=== PATIENT | male | born 1945 | race Caucasian/White ===

== ENCOUNTER 2019-10-06 16:20 | Inpatient (IN) | payer MEDICARE, OTHER ==
[2019-10-06] MEDS ORDERED: Sodium Chloride 0.9% 10 ML Syringe FLUSH PRN (16:35)
[2019-10-06] MEDS: Pantoprazole 40 MG Vial IVPUSH SCH (18:18)
[2019-10-06] MEDS: Sodium Chloride 0.9% 250 ML IV SCH ×2 (18:27→20:29)
--- NOTE | 2019-10-06 18:50 | PCM.HP.2 ---
H&P History of Present Illness - General Date of Service: 10/06/19 Admit Problem/Dx: Admission Diagnosis/Problem Admission Diagnosis/Problem Anemia Source of Information: Patient History Limitations: Reports: No Limitations - History of Present Illness Initial Comments - Free Text/Narative: Daniela came in because of right lower quadrant pain that is mild to moderate over several days. With no radiation. At the clinic he was found, hemoglobin 4.4 g/ dl. He denies any bleeding areas any nausea vomiting, any chronic alcohol use, or NSAID use. No melena stools. He has never seen a doctor and has never had any surgeries. No history of colonoscopy. - Related Data Allergies/Adverse Reactions: Allergies Allergy/AdvReac Type Severity Reaction Status Date / Time No Known Allergies Allergy Verified 10/06/19 18:14 Social & Family History - Tobacco Use Smoking Status *Q: Former Smoker Years of Tobacco use: 40 Packs/Tins Daily: 3 Used Tobacco, but Quit: Yes Month/Year Tobacco Last Used: 09/2019 - Caffeine Use Caffeine Use: Reports: Coffee Other Caffeine Use: 2 CUPS PER DAY BUT STOPPED A WEEK AGO - Alcohol Use Days Per Week of Alcohol Use: 2 Number of Drinks Per Day: 2 Total Drinks Per Week: 4 Date of Last Drink: 10/05/19 - Recreational Drug Use Recreational Drug Use: No H&P Review of Systems - Review of Systems: Review Of Systems: Comprehensive ROS is negative, except as noted in HPI. Exam - Exam Exam: See Below - Vital Signs Vital Signs: Last Vital Signs Temp 97.2 F 10/06/19 18:39 Pulse 56 L 10/06/19 18:39 Resp 18 10/06/19 18:39 BP 115/62 10/06/19 18:39 Pulse Ox 98 10/06/19 16:31 Weight: 92.17 kg - Exam General: Alert, Oriented, 4 HEENT: PERRLA, Hearing Intact, Mucosa Moist & [place], Nares Patent, Normal Nasal Septum, Posterior Pharynx Clear, Conjunctiva Clear, EOMI, EACs Clear, TMs Clear Neck: Supple, Trachea Midline, 2 Lungs: Clear to Auscultation, Normal Respiratory Effort Cardiovascular: Regular Rate, Regular Rhythm GI/Abdominal Exam: Normal Bowel Sounds, Soft, Non-Tender, No Organomegaly, No Distention, No Abnormal Bruit, No Mass, Pelvis Stable (Male) Exam: Deferred Rectal (Males) Exam: Deferred Back Exam: Normal Inspection, Full Range of Motion, NT Extremities: Normal Inspection, Normal Range of Motion, Non-Tender, No Pedal Edema, Normal Capillary Refill Skin: Warm, Dry, Intact Neurological: Cranial Nerves Intact, Reflexes Equal Bilateral Neuro Extensive - Mental Status: Alert, Oriented x3, Normal Mood/Affect, Normal Cognition Neuro Extensive - Motor, Sensory, Reflexes: CN II-XII Intact, Normal Gait, Normal Reflexes Psychiatric: Alert, Normal Affect, Normal Mood - Patient Data Lab Results Last 24 hrs: Laboratory Results - last 24 hr 10/06/19 10/06/19 Range/Units 16:55 16:55 Sodium 142 (135-145) mmol/L Potassium 4.1 (3.5-5.3) mmol/L Chloride 108 (100-110) mmol/L Carbon Dioxide 27 (21-32) mmol/L BUN 8 (7-18) mg/dL Creatinine 0.7 (0.70-1.30) mg/dL Est Cr Clr Drug Dosing 98.49 mL/min Estimated GFR (MDRD) > 60 (>60) BUN/Creatinine Ratio 11.4 (9-20) Glucose 110 (80-116) mg/dL Calcium 9.1 (8.6-10.2) mg/dL Total Bilirubin 0.4 (0.1-1.3) mg/dL AST 13 (5-25) IU/L ALT 11 L (12-36) U/L Alkaline Phosphatase 114 H (56-112) IU/L Total Protein 6.6 (6.0-8.0) g/dL Albumin 2.6 L (3.2-4.6) g/dL Globulin 4.0 g/dL Albumin/Globulin Ratio 0.7 Blood Type O POSITIVE Gel Antibody Screen Negative Crossmatch See Detail Result Diagrams: 10/06/19 16:55 Sepsis Event Note - Evaluation Sepsis Screening Result: No Definite Risk - Focused Exam Vital Signs: Vital Signs Temp Temp Pulse Resp BP Pulse Ox 10/06/19 18:39 97.2 F 56 L 18 115/62 10/06/19 16:31 97.2 F 18 115/62 98 Date Exam was Performed: 10/06/19 Time Exam was Performed: 18:47 - Problem List (1) Anemia SNOMED Code(s): 274355986 ICD Code: D64.9 - ANEMIA, UNSPECIFIED Status: Acute Current Visit: Yes Qualifiers: Anemia type: unspecified type Qualified Code(s): D64.9 - Anemia, unspecified (2) RLQ abdominal tenderness SNOMED Code(s): 734975359 ICD Code: R10.813 - RIGHT LOWER QUADRANT ABDOMINAL TENDERNESS Status: Acute Current Visit: Yes Qualifiers: Presence of rebound: present Qualified Code(s): R10.823 - Right lower quadrant rebound abdominal tenderness Problem List Initiated/Reviewed/Updated: Yes Orders Last 24hrs: Active Orders 24 hr Category Date Time Status Admission Status [Patient Status] [ADT] Routine ADT 10/06/19 16:26 Active EKG Documentation Completion [RC] ASDIRECTED Care 10/06/19 18:47 Ordered Nothing Per Oral Diet [DIET] Diet 10/07/19 Breakfast Active Abdomen Pelvis w Cont [CT] Routine Exams 10/06/19 18:46 Ordered CBC WITH AUTO DIFF [HEME] AM Lab 10/07/19 05:11 Ordered COMPREHENSIVE METABOLIC PN,CMP [CHEM] AM Lab 10/07/19 05:11 Ordered PATIENT RETYPE [BBK] Routine Lab 10/06/19 16:55 Results RED BLOOD CELLS LP [BBK] Routine Lab 10/06/19 16:55 Results TYPE AND SCREEN [BBK] Routine Lab 10/06/19 16:55 Results Pantoprazole [ProTONIX IV] Med 10/06/19 17:00 Active 40 mg IVPUSH Q24H Sodium Chloride 0.9% [Normal Saline] 250 ml Med 10/06/19 16:45 Active IV ASDIRECTED Sodium Chloride 0.9% [Saline Flush] Med 10/06/19 16:35 Active 10 ml FLUSH ASDIRECTED PRN Saline Lock Insert [OM.PC] Routine Oth 10/06/19 16:35 Ordered Transfuse Red Blood Cells [COMM] Stat Oth 10/06/19 16:36 Ordered EKG 12 Lead [EK] AM Ther 10/07/19 05:11 Ordered Medication Orders Sodium Chloride (Normal Saline) 250 mls @ 100 mls/hr IV ASDIRECTED [facility] Last Admin: 10/06/19 18:27 Dose: 100 mls/hr Pantoprazole Sodium (Protonix Iv) 40 mg IVPUSH Q24H [facility] Last Admin: 10/06/19 18:18 Dose: 40 mg Sodium Chloride (Saline Flush) 10 ml FLUSH ASDIRECTED PRN PRN Reason: Keep Vein Open Assessment/Plan Comment:: Admit for blood transfusion. Obtain CT abd pelvis,and I did talk to Dr Reynaga for a possible endoscopy Friday.
[2019-10-06] MEDS ORDERED: Diatrizoate Meglumine/Diatrizoate Sodium 37% 30 ML Bottle PO ONE (19:42)
[2019-10-06] MEDS ORDERED: Iopamidol 755 Mg/ML 100 ML Bottle IV ONE (19:42)
--- NOTE | 2019-10-07 10:37 | PN ---
DATE SEEN: 10/07/2019 SUBJECTIVE: The patient has no complaints today. Last night, I consulted Dr. Ledezma for colonoscopy. A CT of the abdomen and pelvis, however, revealed a mass. Dr. Reynaga does not feel that colonoscopy would be appropriate at least in this setting. REVIEW OF SYSTEMS: Daniela does not complain of any fever or chills, or any bleeding areas. ALLERGIES: None. SOCIAL HISTORY: Smoker. PHYSICAL EXAMINATION: VITAL SIGNS: Today are normal. ENT: Negative. ABDOMEN: Soft with a mass in the right lower quadrant. Mild rebound. LABORATORY DATA: Hemoglobin is only up to 6.3. IMPRESSION: 1. Anemia, severe iron deficiency. 2. Mass: Possibly cancer. 3. Tobacco abuse. PLAN: I discussed the results above with the patient. Suggested 2 more units of RBCs today. He will consult the family to discuss what he would like to do in terms of further workup, diagnosis, and possibly treatment for the colon cancer. I did mention the metastases to the lungs and liver as well. /[id number] MO/JAZMYNE
[2019-10-07] MEDS: Sodium Chloride 0.9% 250 ML IV SCH ×2 (10:47→13:17)
[2019-10-07] MEDS ORDERED: traMADol 50 MG Tab PO PRN (16:19)
[2019-10-07] MEDS: Pantoprazole 40 MG Vial IVPUSH SCH (16:54)
--- NOTE | 2019-10-08 08:19 | PCM.PN ---
- General Info Date of Service: 10/08/19 Admission Dx/Problem (Free Text): Patient sates is a little pain in the right abdomen. Not requiring any pain pills. He denies any nausea, vomiting, dizziness, melena or hematochezia. - Patient Data Vitals - Most Recent: Last Vital Signs Temp 97.6 F 10/08/19 00:00 Pulse 54 L 10/08/19 00:00 Resp 18 10/08/19 00:00 BP 130/71 10/08/19 00:00 Pulse Ox 96 10/08/19 00:00 Weight - Most Recent: 262 lb 8 oz I&O - Last 24 Hours: Intake & Output 10/07/19 10/08/19 10/08/19 22:59 06:59 14:59 Intake Total 390 Balance 390 Lab Results Last 24 Hours: Laboratory Results - last 24 hr 10/06/19 10/08/19 10/08/19 Range/Units 16:55 06:20 06:20 WBC 7.2 (4.5-12.0) X10-3/uL RBC 3.87 L (4.30-5.75) x10(6)uL Hgb 7.8 L (13.5-17.8) g/dL Hct 25.5 L (30.0-51.3) % MCV 66.0 L (80-96) fL MCH 20.2 L (27.7-33.6) pg MCHC 30.6 L (32.2-35.4) g/dL RDW 29.3 H (11.5-15.5) % Plt Count 282 (125-369) X10(3)uL MPV 7.2 L (7.4-10.4) fL Add Manual Diff Yes Neutrophils % (Manual) 64 (46-82) % Band Neutrophils % 1 (0-6) % Lymphocytes % (Manual) 26 (13-37) % Monocytes % (Manual) 8 (4-12) % Basophils % (Manual) 1 (0-2) % Hypochromasia Moderate H Poikilocytosis Many H Anisocytosis Moderate H Microcytosis Moderate H Spherocytes Few H Schistocytes Few Sodium 140 (135-145) mmol/L Potassium 4.5 (3.5-5.3) mmol/L Chloride 106 (100-110) mmol/L Carbon Dioxide 28 (21-32) mmol/L BUN 8 (7-18) mg/dL Creatinine 0.9 (0.70-1.30) mg/dL Est Cr Clr Drug Dosing 76.60 mL/min Estimated GFR (MDRD) > 60 (>60) BUN/Creatinine Ratio 8.9 L (9-20) Glucose 108 (80-116) mg/dL Calcium 8.4 L (8.6-10.2) mg/dL Blood Type O POSITIVE Gel Antibody Screen Negative Crossmatch See Detail Med Orders - Current: Current Medications Sodium Chloride (Normal Saline) 250 mls @ 100 mls/hr IV ASDIRECTED [facility] Last Admin: 10/06/19 20:29 Dose: 100 mls/hr Sodium Chloride (Normal Saline) 250 mls @ 100 mls/hr IV ASDIRECTED [facility] Last Admin: 10/07/19 13:17 Dose: 100 mls/hr Pantoprazole Sodium (Protonix Iv) 40 mg IVPUSH Q24H [facility] Last Admin: 10/07/19 16:54 Dose: 40 mg Sodium Chloride (Saline Flush) 10 ml FLUSH ASDIRECTED PRN PRN Reason: Keep Vein Open Tramadol HCl (Ultram) 50 mg PO TID PRN PRN Reason: Pain Last Admin: 10/07/19 16:54 Dose: 50 mg Discontinued Medications Diatrizoate Meglum/Diatrizoate Sod (Gastrografin 37%) 30 ml PO . DIRECTED ONE Stop: 10/06/19 19:43 Last Admin: 10/06/19 21:40 Dose: 30 ml Iopamidol (Isovue-370 (76%)) 100 ml IV . DIRECTED ONE Stop: 10/06/19 19:43 Last Admin: 10/06/19 21:40 Dose: 100 ml - Exam General: Alert, Oriented, Cooperative Sepsis Event Note - Evaluation Sepsis Screening Result: No Definite Risk - Focused Exam Vital Signs: Vital Signs Temp Pulse Resp BP Pulse Ox 10/08/19 00:00 97.6 F 54 L 18 130/71 96 Date Exam was Performed: 10/08/19 Time Exam was Performed: 08:16 - Problem List & Annotations (1) Mass of colon SNOMED Code(s): 352262736 Code(s): K63.89 - OTHER SPECIFIED DISEASES OF INTESTINE Status: Acute Current Visit: Yes (2) Metastasis SNOMED Code(s): 443656779 Code(s): C79.9 - SECONDARY MALIGNANT NEOPLASM OF UNSPECIFIED SITE Status: Acute Current Visit: Yes (3) Smoking SNOMED Code(s): 26688614 Code(s): F17.200 - NICOTINE DEPENDENCE, UNSPECIFIED, UNCOMPLICATED Status: Acute Current Visit: Yes (4) Anemia SNOMED Code(s): 551149323 Code(s): D64.9 - ANEMIA, UNSPECIFIED Status: Acute Current Visit: Yes Qualifiers: Anemia type: unspecified type Qualified Code(s): D64.9 - Anemia, unspecified (5) RLQ abdominal tenderness SNOMED Code(s): 346956155 Code(s): R10.813 - RIGHT LOWER QUADRANT ABDOMINAL TENDERNESS Status: Acute Current Visit: Yes Qualifiers: Presence of rebound: present Qualified Code(s): R10.823 - Right lower quadrant rebound abdominal tenderness - Problem List Review Problem List Initiated/Reviewed/Updated: Yes - Plan Plan:: 1. Discharge to home. Patient states he does not need any home health. 2. We'll have the patient see Dr. Bronson his primary provider to navigate what specialty care he needs. Dr. Marinelli did talk to [facility] surgeon and he did not want do colonoscopy at this time. 3. Iron once a day and I gave him a prescription for some hydrocodone for breakthrough pain. He also is willing to try a nicotine patch for smoking cessation.
--- NOTE | 2019-10-08 08:30 | PCM.DCSUM1 ---
Discharge Summary - Hospital Course Free Text/Narrative:: Hospital course-patient had a CAT scan that showed ascending colon mass. There is some metastases to the liver. Dr. Marinelli related to me that he talk to Dr. Hawkins about the patient's condition. And he refrained to do a colonoscopy at this time. Patient had hemoglobin the clinic to 4.4 cm 2 units of RBCs were given. His hemoglobin went up to over 6. The next day he was given 2 more units and his hemoglobin went over 7. Patient just a little bit of abdominal pain. He denied dizziness. His alkaline phosphatase is slightly elevated they will back to normal otherwise the liver functions were normal. His CBC showed a microcytic pattern. It was decided by the previous provider that he'll go back to his primary provider who will coordinate further workup. Patient states he does not need any home health services. Patient is a smoker and wants to try to quit smoking. I sent NicoDerm patches over for one month. Iron once a day. Brief History: Daniela came in because of right lower quadrant pain that is mild to moderate over several days. With no radiation. At the clinic he was found, hemoglobin 4.4 g/dl. He denies any bleeding areas any nausea vomiting, any chronic alcohol use, or NSAID use. No melena stools. He has never seen a doctor and has never had any surgeries. No history of colonoscopy Diagnosis: Stroke: No - Discharge Data Discharge Date: 10/08/19 Discharge Disposition: Home, Self-Care 01 Condition: Good - Referral to Home Health Primary Care Physician: Brent Bronson MD - Discharge Diagnosis/Problem(s) (1) Mass of colon SNOMED Code(s): 255614871 ICD Code: K63.89 - OTHER SPECIFIED DISEASES OF INTESTINE Status: Acute Current Visit: Yes (2) Metastasis SNOMED Code(s): 605977018 ICD Code: C79.9 - SECONDARY MALIGNANT NEOPLASM OF UNSPECIFIED SITE Status: Acute Current Visit: Yes (3) Smoking SNOMED Code(s): 55728384 ICD Code: F17.200 - NICOTINE DEPENDENCE, UNSPECIFIED, UNCOMPLICATED Status : Acute Current Visit: Yes (4) Anemia SNOMED Code(s): 564365165 ICD Code: D64.9 - ANEMIA, UNSPECIFIED Status: Acute Current Visit: Yes Qualifiers: Anemia type: unspecified type Qualified Code(s): D64.9 - Anemia, unspecified (5) RLQ abdominal tenderness SNOMED Code(s): 302703600 ICD Code: R10.813 - RIGHT LOWER QUADRANT ABDOMINAL TENDERNESS Status: Acute Current Visit: Yes Qualifiers: Presence of rebound: present Qualified Code(s): R10.823 - Right lower quadrant rebound abdominal tenderness - Patient Instructions Diet: Regular Diet as Tolerated Activity: As Tolerated Driving: May Drive Today Showering/Bathing: May Shower Notify Provider of: Increased Pain, Nausea and/or Vomiting Other/Special Instructions: 1. Recheck with Dr. Bronson within 1 week. - Discharge Plan Prescriptions/Med Rec: Acetaminophen/HYDROcodone [[place] 325-5 MG] 1 tab PO Q4H PRN #15 tab PRN Reason: Pain Iron,Carbonyl/Vit C/Vit B12/Fa [Iron 100 Plus Tablet] 1 each PO DAILY #30 tablet Nicotine [Nicoderm CQ] 21 mg TD DAILY #30 patch Home Medications: Home Meds Acetaminophen/HYDROcodone [[place] 325-5 MG] 1 tab PO Q4H PRN #15 tab 10/08/19 [Rx ] Iron,Carbonyl/Vit C/Vit B12/Fa [Iron 100 Plus Tablet] 1 each PO DAILY #30 tablet 10/08/19 [Rx] Nicotine [Nicoderm CQ] 21 mg TD DAILY #30 patch 10/08/19 [Rx] Patient Handouts: Anemia, Fall Prevention in Hospitals, Adult, Deep Vein Thrombosis - Discharge Summary/Plan Comment DC Time >30 min.: No - Patient Data Vitals - Most Recent: Last Vital Signs Temp 97.6 F 10/08/19 00:00 Pulse 54 L 10/08/19 00:00 Resp 18 10/08/19 00:00 BP 130/71 10/08/19 00:00 Pulse Ox 96 10/08/19 00:00 Weight - Most Recent: 262 lb 8 oz I&O - Last 24 hours: Intake & Output 10/07/19 10/08/19 10/08/19 22:59 06:59 14:59 Intake Total 390 Balance 390 Lab Results - Last 24 hrs: Laboratory Results - last 24 hr 10/06/19 10/08/19 10/08/19 Range/Units 16:55 06:20 06:20 WBC 7.2 (4.5-12.0) X10-3/uL RBC 3.87 L (4.30-5.75) x10(6)uL Hgb 7.8 L (13.5-17.8) g/dL Hct 25.5 L (30.0-51.3) % MCV 66.0 L (80-96) fL MCH 20.2 L (27.7-33.6) pg MCHC 30.6 L (32.2-35.4) g/dL RDW 29.3 H (11.5-15.5) % Plt Count 282 (125-369) X10(3)uL MPV 7.2 L (7.4-10.4) fL Add Manual Diff Yes Neutrophils % (Manual) 64 (46-82) % Band Neutrophils % 1 (0-6) % Lymphocytes % (Manual) 26 (13-37) % Monocytes % (Manual) 8 (4-12) % Basophils % (Manual) 1 (0-2) % Hypochromasia Moderate H Poikilocytosis Many H Anisocytosis Moderate H Microcytosis Moderate H Spherocytes Few H Schistocytes Few Sodium 140 (135-145) mmol/L Potassium 4.5 (3.5-5.3) mmol/L Chloride 106 (100-110) mmol/L Carbon Dioxide 28 (21-32) mmol/L BUN 8 (7-18) mg/dL Creatinine 0.9 (0.70-1.30) mg/dL Est Cr Clr Drug Dosing 76.60 mL/min Estimated GFR (MDRD) > 60 (>60) BUN/Creatinine Ratio 8.9 L (9-20) Glucose 108 (80-116) mg/dL Calcium 8.4 L (8.6-10.2) mg/dL Blood Type O POSITIVE Gel Antibody Screen Negative Crossmatch See Detail Med Orders - Current: Current Medications Sodium Chloride (Normal Saline) 250 mls @ 100 mls/hr IV ASDIRECTED [facility] Last Admin: 10/06/19 20:29 Dose: 100 mls/hr Sodium Chloride (Normal Saline) 250 mls @ 100 mls/hr IV ASDIRECTED [facility] Last Admin: 10/07/19 13:17 Dose: 100 mls/hr Pantoprazole Sodium (Protonix Iv) 40 mg IVPUSH Q24H [facility] Last Admin: 10/07/19 16:54 Dose: 40 mg Sodium Chloride (Saline Flush) 10 ml FLUSH ASDIRECTED PRN PRN Reason: Keep Vein Open Tramadol HCl (Ultram) 50 mg PO TID PRN PRN Reason: Pain Last Admin: 10/07/19 16:54 Dose: 50 mg Discontinued Medications Diatrizoate Meglum/Diatrizoate Sod (Gastrografin 37%) 30 ml PO . DIRECTED ONE Stop: 10/06/19 19:43 Last Admin: 10/06/19 21:40 Dose: 30 ml Iopamidol (Isovue-370 (76%)) 100 ml IV . DIRECTED ONE Stop: 10/06/19 19:43 Last Admin: 10/06/19 21:40 Dose: 100 ml
== END 2019-10-08 10:55 | disposition home or self-care (01) | DRG 812 ==
LOC: FB.MS 16:20
PROVIDERS: ADMIT Family Medicine; ATTEND Family Medicine
PROC: 30233N1 Transfusion of Nonautologous Red Blood Cells into Peripheral Vein, Percutaneous Approach (ICD-10-PCS; principal; 2019-10-06)
DX: D50.9 Iron deficiency anemia, unspecified (principal); C78.01 Secondary malignant neoplasm of right lung; C78.02 Secondary malignant neoplasm of left lung; C78.7 Secondary malignant neoplasm of liver and intrahepatic bile duct; K63.89 Other specified diseases of intestine; F17.200 Nicotine dependence, unspecified, uncomplicated
CPT/HCPCS: 36415; 36430; 74177; 80048; 80053; 85025; 86850; 86900; 86901; 86920; 86922; 93005; A9270-GY; C9113; J7050; P9016; Q9963; Q9967